=== PATIENT | male | born 1960 | race Caucasian/White ===

== ENCOUNTER 2019-09-06 07:05 | Day surgery (SDC) | payer MEDICARE, MEDICAID ==
[2019-09-06] VITALS (12 sets, daily range): BP systolic 93–125; BP diastolic 41–78
[~2019-09-06] VITALS: Ht 180.3 cm; Wt 90.5 kg
[2019-09-06] MEDS ORDERED: normal saline 1000ml 1,000 ML IV PRN (07:30)
[2019-09-06] MEDS ORDERED: FURO40TA4 PO (07:46)
[2019-09-06] MEDS ORDERED: POTA10TA10 PO (07:46)
[2019-09-06] MEDS ORDERED: SILD20TA2 PO (07:46)
[2019-09-06] MEDS ORDERED: APIX5TAB3 PO (07:46)
[2019-09-06] MEDS ORDERED: SPIR25TA PO (07:46)
[2019-09-06] MEDS: albumin 25% 100mL bottle x 1 IV PRN ×2 (09:32→10:17)
== END 2019-09-06 11:30 | disposition home or self-care (01) ==
LOC: SSTAY O 07:05
PROVIDERS: ATTEND Radiology Vascular & Interventional Radiology
DX: R18.8 Other ascites (principal); I10 Essential (primary) hypertension; Z86.79 Personal history of other diseases of the circulatory system; Z88.8 Allergy status to other drugs, medicaments and biological substances; Z79.899 Other long term (current) drug therapy; Z72.89 Other problems related to lifestyle
CPT/HCPCS: 49083; P9047

== ENCOUNTER 2019-09-13 12:40 | Inpatient (IN) | payer MEDICARE, MEDICAID ==
[~2019-09-13] VITALS: Ht 180.3 cm; Wt 79.5 kg
[~2019-09-13 12:40] MED LIST: APIX5TAB3 PO; FURO40TA4 PO; POTA10TA10 PO; SILD20TA2 PO; SPIR25TA PO; atropine 0.1 mg/ml 5ml syringe ONE; calcium chloride 100 MG/1 ML inj IV ONE; dextrose 50%-water 50ml dispensing syringe IV ONE; epiNEPHrine 0.1mg/ml 10ml syringe ONE; sodium bicarbonate (8.4%) 1 mEq/ml syringe ONE
[2019-09-13] MEDS ORDERED: morphine 4 MG/ML inj SYRINge IV ONE (13:35)
[2019-09-13] MEDS ORDERED: ondansetron/PF 4mg/2ml inj IV ONE (13:35)
[2019-09-13] MEDS ORDERED: normal saline 1000ml 1,000 ML IV ONE ×2 (13:35→15:25)
--- NOTE | 2019-09-13 13:35 | NUR ---
DISCUSSED PT'S PAIN WITH EDMD HERBER; NEW ORDER FOR NS 500ML BOLUS, ZOFRAN 4MG IV, MORPHINE 4MG RECEIVED.
[2019-09-13] MEDS ORDERED: fentaNYL/PF 50MCG/1 ML 2ML syringe IV ONE (14:15)
[2019-09-13] MEDS ORDERED: furosemide 10 MG/1 ML 10ml inj IV ONE (14:15)
[2019-09-13 14:27] LABS: BASOPHILS % (AUTO) 0.1 % (0-1); EOSINOPHILS % (AUTO) 0.1 % (0-6); HEMATOCRIT 48.1 % (42.0-52.0); HEMOGLOBIN 16.1 g/dl (14.0-17.9); LYMPHOCYTES # (AUTO) 0.3 X10'3 (1.1-4.8); LYMPHOCYTES % (AUTO) 5.6 % (21-51); MEAN CORPUSCULAR HEMOGLOBIN 31.1 PG (27.0-31.0); MEAN CORPUSCULAR HGB CONC 33.5 g/dL (33.0-36.5); MEAN PLATELET VOLUME 9.5 FL (7.4-10.4); MONOCYTES # (AUTO) 0.2 X10'3 (0-0.9); MONOCYTES % (AUTO) 3.1 % (2-12); NEUTROPHILS # (AUTO) 5.4 X10'3 (1.8-7.7); NEUTROPHILS % (AUTO) 91.1 % (42-75); PLATELET COUNT 171 X10'3 (140-440); RED BLOOD COUNT 5.17 X10'6 (4.70-6.10); RED CELL DISTRIBUTION WIDTH 16.1 % (11.5-14.5); WHITE BLOOD COUNT 5.9 X10'3 (4.5-11.0)
[2019-09-13] MEDS ORDERED: normal saline 1000ML IV soln IVB ONE (14:30)
[2019-09-13 14:37] LABS: PARTIAL THROMBOPLASTIN TIME 37 SECONDS (22-32)
[2019-09-13 14:38] LABS: ALANINE AMINOTRANSFERASE 20 U/L (12-78); ALBUMIN 2.2 G/DL (3.4-5.0); ALBUMIN/GLOBULIN RATIO 0.8 (1.1-1.5); ALKALINE PHOSPHATASE 44 IU/L (46-116); ANION GAP 15 (8-16); BILIRUBIN,TOTAL 2.2 MG/DL (0.1-1.0); BLOOD UREA NITROGEN 58 MG/DL (7-18); BUN/CREATININE RATIO 18.2 (5.4-32.0); CALCIUM 8.4 MG/DL (8.5-10.1); CHLORIDE 89 MMOL/L (99-107); CREATININE 3.19 MG/DL (0.60-1.10); ETHANOL < 0.010 GM/DL (0.0-0.010); GLUCOSE 73 MG/DL (70-104); SODIUM 123 MMOL/L (135-145); TOTAL CARBON DIOXIDE 19.4 MMOL/L (24-32); TOTAL PROTEIN 5.1 G/DL (6.4-8.2); eGFR 20 ML/MIN
[2019-09-13 14:39] LABS: POTASSIUM 4.8 MMOL/L (3.5-5.1)
[2019-09-13 14:40] LABS: ASPARTATE AMINO TRANSFERASE 46 U/L (10-37)
[2019-09-13] MEDS ORDERED: piperacillin/tazo 3.375gm/50ml 50 ML IV ONE (15:25)
[2019-09-13] MEDS ORDERED: NORepinephrine 8mg/ 250ml NS 250 ML IV SCH (15:30)
[2019-09-13] MEDS ORDERED: vancomycin/NS 1 GM ADD-VANTAGE 250 ML IV ONE (15:40)
[2019-09-13] MEDS ORDERED: POTA-82 PO (17:31)
[2019-09-13] MEDS ORDERED: SPIR25TA5 PO (17:31)
[2019-09-13] MEDS ORDERED: POTA10TA36 PO (17:33)
[2019-09-13] MEDS ORDERED: TORS20TA3 PO (17:33)
[2019-09-13] MEDS ORDERED: normal saline 1000ml 1,000 ML IV SCH (17:39)
[2019-09-13] MEDS ORDERED: sodium phosphate inj. 30 MMOL in dextrose 5%-water 250 ML IV PRN (17:40)
[2019-09-13] MEDS ORDERED: Neutra Phos packet PO PRN (17:40)
[2019-09-13] MEDS ORDERED: morphine 2 MG/ML inj. syringe IV PRN (17:40)
[2019-09-13] MEDS ORDERED: magnesium Cl slow-release 64mg tablet PO PRN (17:40)
[2019-09-13] MEDS ORDERED: acetaminophen 325mg tablet PO PRN ×2 (17:40)
[2019-09-13] MEDS ORDERED: potassium Cl 20 mEq SR tablet PO PRN ×2 (17:40)
[2019-09-13] MEDS ORDERED: LIDOcaine 2% 10ml TOPICAL JELLY (Urojet) TP ONE (17:40)
[2019-09-13] MEDS ORDERED: ondansetron/PF 4mg/2ml inj IV PRN (17:40)
[2019-09-13] MEDS ORDERED: NORepinephrine 8mg/ 250ml NS 250 ML IV PRN (17:40)
[2019-09-13] MEDS ORDERED: magnesium 4gm in 100ml NS 100 ML IV PRN (17:40)
[2019-09-13] MEDS ORDERED: sodium phosphate inj. 15 MMOL in dextrose 5%-water 250 ML IV PRN (17:40)
[2019-09-13] MEDS ORDERED: morphine 4 MG/ML inj SYRINge IV PRN (17:40)
[2019-09-13] MEDS ORDERED: albuterol 2.5 MG/3 ML nebule NEB PRN ×2 (17:40→22:45)
[2019-09-13] MEDS ORDERED: magnesium 2GM in 50ml NS 50 ML IV PRN (17:40)
[2019-09-13] MEDS ORDERED: bisacodyl 10mg suppository rectal RC PRN (17:40)
[2019-09-13 18:48] LABS: CLARITY,URINE CLEAR (Clear); COLOR,URINE YELLOW (Yellow); GLUCOSE, URINE NEGATIVE (Neg); KETONES,URINE NEGATIVE (Neg); LEUKOCYTE ESTERASE ,URINE NEGATIVE (Neg); NITRITES, URINE NEGATIVE (Neg); OCCULT BLOOD,URINE NEGATIVE (Neg); PH,URINE 5.5 (4.8-8.0); PROTEIN,URINE NEGATIVE (Neg); UROBILINOGEN,URINE 0.2 E.U/dL (0.2-1.0)
[2019-09-13 18:53] LABS: UA COLLECTION TYPE FOLEY CATH
--- NOTE | 2019-09-13 19:00 | NUR ---
Patient in room ICU 2039. I have received report from germán NOVAK and had the opportunity to ask questions and assume patient care.
[2019-09-13 19:02] LABS: URINE AMPHETAMINE SCREEN POSITIVE (Neg); URINE BARBITUATE SCREEN NEGATIVE (Neg); URINE BENZODIAZEPINES SCREEN NEGATIVE (Neg); URINE CANNABINOID SCREEN NEGATIVE (Neg); URINE COCAINE SCREEN NEGATIVE (Neg); URINE METHADONE SCREEN NEGATIVE (Neg); URINE OPIATE SCREEN NEGATIVE (Neg); URINE PHENCYCLIDINE SCREEN NEGATIVE (Neg)
[2019-09-13 19:30] VITALS: BP 88/63
[2019-09-13 20:00] VITALS: BP 95/37
[2019-09-13] MEDS ORDERED: apixaban 5mg tablet PO SCH (20:00)
[2019-09-13] MEDS ORDERED: docusate sod 100mg capsule PO SCH (20:00)
[2019-09-13] MEDS ORDERED: rocuronium bromide 100mg/10ml (10mg/ml) injection IV ONE (20:00)
[2019-09-13] MEDS ORDERED: hydrocortisone sod succ/PF 100mg/2ml inj. IV SCH (20:00)
[2019-09-13] MEDS ORDERED: LIDOcaine 2% 5ml jelly ONE (20:00)
[2019-09-13 20:10] LABS: OXYGEN SATURATION (MIXED VEN) 51.8 % (60-80); PO2 MIXED VENOUS (TEMP COR) 31.3 mmHg (35-46)
--- NOTE | 2019-09-13 20:30 | NUR ---
DR mccrary ordered a CT of the bilateral legs to rule out necrotizing fasciitis especially on the left leg where the patient reports 9/10 pain and there purple and red discolorations on the medial portion on the thigh. Patient tolerated trip to CT well.
[2019-09-13 21:00] VITALS: BP 88/50
[2019-09-13 21:15] LABS: ALBUMIN 2.1 G/DL (3.4-5.0); ANION GAP 16 (8-16); BLOOD UREA NITROGEN 59 MG/DL (7-18); CALCIUM 7.9 MG/DL (8.5-10.1); CHLORIDE 93 MMOL/L (99-107); CREATININE 3.27 MG/DL (0.60-1.10); GLUCOSE 75 MG/DL (70-104); MAGNESIUM 1.8 MG/DL (1.5-2.4); PHOSPHORUS 6.4 MG/DL (2.3-4.5); POTASSIUM 4.5 MMOL/L (3.5-5.1); SODIUM 123 MMOL/L (135-145); eGFR 19 ML/MIN
[2019-09-13 21:22] LABS: TOTAL CARBON DIOXIDE 14.2 MMOL/L (24-32)
[2019-09-13] MEDS ORDERED: sodium bicarbonate (8.4%) inj. 150 MEQ in dextrose 5%-water 1,000 ML IV SCH (21:35)
[2019-09-13 22:00] VITALS: BP 95/37
[2019-09-13] MEDS ORDERED: FENTANYL-0.9 % NACL/PF 100 ML IV PRN (22:44)
[2019-09-13] MEDS ORDERED: midazolam 100mg in NS 100ml 100 ML IV PRN (22:44)
[2019-09-13 23:00] VITALS: BP 92/23
[2019-09-13] MEDS ORDERED: ipratropium/albuterol 3ml nebule NEB SCH (23:00)
[2019-09-13] MEDS ORDERED: sodium bicarbonate (8.4%) 1 mEq/ml syringe ONE (23:05)
[2019-09-13 23:15] VITALS: BP 154/23
--- NOTE | 2019-09-13 23:30 | NUR ---
Patient Has . At 2330 PT was wanting mouth swabs and more pain medicine for his left leg. I was going to request for more pain meds because it was too early for his next morphine IV push, he was also requesting something to drink because his mouth was dry. I told him I was going to call the practitioner his face seemed to freeze and turn purple. He stopped breathing for aminute and his heart rate began to decrease. Then his breathing became agonal and he had no discernable pulse and a bradycardic wave form. A code was initiated compressions were started, dr murphy came up and put in an ET tube. Several epinephrines were given as well as atropine and bicarb. Dr Colmenares came in and took over the code He started an Arterial line. A palpable pulse was restored about three time but quickl;y abated into PEA and extreme bradycardic rhythms. The Patients son was contacted and he did come in, Finally at 2321 the code ended unsuccessfully. The son who was present in the outer hallway was notified
--- NOTE | 2019-09-13 23:58 | NUR ---
called [facility] dispatch to notify the machine operator hop picker about , she said he will call us back.
[2019-09-14] MEDS ORDERED: piperacillin/tazo 3.375gm/50ml 50 ML IV SCH
--- NOTE | 2019-09-14 00:42 | NUR ---
Informed fitness and wellness director's office of circumstances of patient's . HE consented that it was ok to release the body to the family.
[2019-09-14] MEDS ORDERED: pantoprazole 40mg Tablet.DR PO SCH (07:30)
[2019-09-14] MEDS ORDERED: vancomycin inj 1,000 MG in normal saline 250ml IV soln 250 ML IV SCH (17:00)
[2019-09-14] MEDS ORDERED: apixaban 5mg tablet PO SCH (20:00)
[2019-09-15] MEDS ORDERED: mineral oil/petrolatum ophthal oint EACHEYE SCH (02:00)
[2019-09-15] MEDS ORDERED: bisacodyl 10mg suppository rectal RC PRN (17:40)
== END 2019-09-14 03:41 | disposition expired | DRG 871 ==
LOC: ER 12:41 → ED HOLD 17:39 → ICU 2S 19:40
PROVIDERS: ADMIT Internal Medicine Critical Care Medicine; ATTEND Internal Medicine Critical Care Medicine
PROC: 02HV33Z Insertion of Infusion Device into Superior Vena Cava, Percutaneous Approach (ICD-10-PCS; principal; 2019-09-13)
PROC: 5A12012 Performance of Cardiac Output, Single, Manual (ICD-10-PCS; 2019-09-13)
PROC: 04HY32Z Insertion of Monitoring Device into Lower Artery, Percutaneous Approach (ICD-10-PCS; 2019-09-14)
PROC: 4A133B1 Monitoring of Arterial Pressure, Peripheral, Percutaneous Approach (ICD-10-PCS; 2019-09-14)
PROC: 4A133J1 Monitoring of Arterial Pulse, Peripheral, Percutaneous Approach (ICD-10-PCS; 2019-09-14)
DX: A41.9 Sepsis, unspecified organism (principal); R65.21 Severe sepsis with septic shock; N18.4 Chronic kidney disease, stage 4 (severe); E87.2 Acidosis; I13.0 Hypertensive heart and chronic kidney disease with heart failure and stage 1 through stage 4 chronic kidney disease, or unspecified chronic kidney disease; I47.2 Ventricular tachycardia; N17.9 Acute kidney failure, unspecified; E87.1 Hypo-osmolality and hyponatremia; L03.116 Cellulitis of left lower limb; L03.115 Cellulitis of right lower limb; I46.9 Cardiac arrest, cause unspecified; I48.91 Unspecified atrial fibrillation; I50.9 Heart failure, unspecified; I73.9 Peripheral vascular disease, unspecified; K59.00 Constipation, unspecified; Z88.8 Allergy status to other drugs, medicaments and biological substances; Z79.899 Other long term (current) drug therapy
CPT/HCPCS: 36415; 36556; 71045; 73700; 80053; 80069; 80305; 80320; 81003; 82140; 82810; 82948; 83605; 83735; 84145; 84443; 85025; 85610; 85730; 87040; 87077; 87186; 92950; 93005; 94760; 99285; G0378; J0171; J0461; J2270; J2405; J2543; J3010; J3370; J7030